=== PATIENT | female | born 1960 | race Caucasian/White ===

== ENCOUNTER → 2019-12-21 08:43 | Outpatient (CLI) | payer BC, SELFPAY ==
--- NOTE | ~2019-12-21 | XR_ITS ---
XR thoracic spine 2V 12/21/2019 10:31 Indication: 3 views thoracic spine Procedure: 3 views thoracic spine Comparison: No prior studies for comparison. Findings: There is mild curvature of the thoracic spine. Vertebral body heights are maintained. No fr acture or traumatic malalignment. There is mild thoracic spondylosis primarily of the upper thoracic spine. No acute fracture or traumatic malalignment. Impression: 1: Mild thoracic spondylosis. Reviewed, dictated and finalized at location A. STANT SHIFT SUPERVISOR Impression: 1: Mild thoracic spondylosis.
--- NOTE | ~2019-12-21 | XR_ITS ---
XR lumbar spine 6V w bending 12/21/2019 10:32 Indication: Radiculopathy. Procedure: 7 views lumbar spine Comparison: No prior studies for comparison. Findings: There is advanced multilevel facet hypertrophy at L3-4, L4-5 and L5-S1. There is a chronic fracture deformity of L2 with associated vertebroplasty changes. There is mild disc narrowing at L3-4 , L4-5 and L5-S1. There is degenerative grade 1 spondylolisthesis at L4-5. Impression: 1: Chronic mild superior endplate compression fracture of L2 with associated vertebroplasty changes. 2: Moderate lumbar spondylosis primarily involving the facet joints. Reviewed, dictated and finalized at location A. SOFTWARE DEVELOPMENT ENGINEER Impression: 1: Chronic mild superior endplate compression fracture of L2 with associated ve rtebroplasty changes. 2: Moderate lumbar spondylosis primarily involving the facet joints.
--- NOTE | ~2019-12-21 | MR_ITS ---
EXAMINATION: MR lumbar spine wo con EXAM DATE: 12/21/2019 09:34 INDICATION: Low back pain, left leg pain, lumbar radiculopathy. TECHNIQUE: Multi-sequential, multiplanar MR images of the lumbar spine were obtained without contrast . Sagittal T1, T2, T2 fat saturation images. Axial T2 weighted images. Comparison is made to prior examination from 12/19/2016. FINDINGS: There is mild chronic compression fracture of L2, with development of low signal intensity in side from methylmethacrylate injection. Height is stable compared to prior study. There is rudimen tary L5-S1 disc with some additional loss of height. There is 2-3 mm anterolisthesis L4 on L5. The ve rtebral bodies are otherwise aligned. The vertebral body and disc heights are otherwise well maintain ed. The conus medullaris terminates at the L1 level and has normal signal intensity and morphology. Paraspinal soft tissue is unremarkable. Level by level evaluation: T11-12: There is a minimal diffuse disc bulge. Facet arthropathy: Mild to moderate right, mild left. Neural foraminal stenosis: No stenosis. Central canal stenosis: No stenosis. T12-L1: Disc does not extend beyond the endplate margin. Facet arthropathy: Mild to moderate. Neural foraminal stenosis: No stenosis. Central canal stenosis: No stenosis. L1-L2: There is a minimal diffuse disc bulge. Facet arthropathy: Mild. Neural foraminal stenosis: No stenosis. Central canal stenosis: No stenosis. L2-L3: Disc does not extend beyond the endplate margin. Facet arthropathy: Mild. Neural foraminal stenosis: No stenosis. Central canal stenosis: No stenosis. L3-L4: There is a mild diffuse disc bulge. Facet arthropathy: Moderate. Neural foraminal stenosis: Mild to moderate bilateral. Central canal stenosis: Mild. L4-L5: There is a mild to moderate diffuse disc bulge. Facet arthropathy: Moderate to severe. . Ligamentum flavum enlargement. Neural foraminal stenosis: Moderate left, mild right. Central canal stenosis: Mild to moderate. L5-S1: There is a mild to moderate diffuse disc bulge. Facet arthropathy: Mild to moderate. Neural foraminal stenosis: Moderate left, mild to moderate right. Central canal stenosis: Mild. IMPRESSION: 1. Mild to moderate lumbar spondylosis as detailed above. Reviewed, dictated and finalized at location A. AND COST ANALYST
== END ==
PROVIDERS: PCP Family Medicine Adolescent Medicine; Visit Provider Physician Assistant Medical
DX: M47.24 Other spondylosis with radiculopathy, thoracic region (principal); M47.26 Other spondylosis with radiculopathy, lumbar region; M48.56XS Collapsed vertebra, not elsewhere classified, lumbar region, sequela of fracture
CPT/HCPCS: 72070; 72114; 72148

== ENCOUNTER 2020-07-23 15:38 | Outpatient (CLI) | payer BC, SELFPAY ==
[2020-07-23 16:46] LABS: CRP 1.1 mg/dL (<1.0)
[2020-07-23 16:59] LABS: Erythrocyte Sedimentation Rate 25 mm/hr (0-20)
== END 2020-07-23 15:39 | disposition home or self-care (01) ==
LOC: ANHLAB 15:39
PROVIDERS: PCP Family Medicine Adolescent Medicine; Visit Provider Orthopaedic Surgery
DX: G89.29 Other chronic pain (principal); M25.552 Pain in left hip
CPT/HCPCS: 36415; 85652; 86140

== ENCOUNTER → 2020-07-31 07:51 | Outpatient (CLI) | payer BC, SELFPAY ==
--- NOTE | ~2020-07-31 | MR_ITS ---
EXAMINATION: MR hip LT wo con DATE: 07/31/2020 09:17 INDICATION: Left hip pain post prior arthroplasty. TECHNIQUE: Magnetic resonance imaging (MRI) of the left hip was performed without intravenous contra st. Sequences included full-field axial fluid sensitive FSE STIR, coronal of the pelvis with T1-weigh rob FSE and T2-weighted FSE, small field of view of the left hip with axial, sagittal and coronal T1 -weighted FSE and T2-weighted FSE. COMPARISON: Left hip radiographs dated 07/23/2020 FINDINGS: Bones: Metallic magnetic field artifact associated with a left total hip arthroplasty. Alignment is normal. No fracture, reactive marrow edema, avascular necrosis or pathologic marrow replacing process. Mode rate lumbar spondylosis. Right hip joint space appears relatively preserved on the larger field of vi ew images. Fluid: Physiologic amount of fluid at the right hip joint. No left hip joint effusion with small amount of i ncreased signal along the margins of the arthroplasty which could represent minimal fluid or artifact . Mild increased fluid signal about the right greater trochanter consistent with mild trochanteric bu rsitis. No other abnormal fluid collections. Soft tissues: Normal and symmetric muscle bulk and signal in the pelvis and visualized proximal thighs. The iliopso as and proximal hamstring tendons are normal. There is mild thickening of the posterior left gluteus medius tendon with mild asymmetric proximal retraction of the the posterior myotendinous junction con sistent with tendinopathy with likely mild partial tear. Mild tendinopathy without discrete tear at t he left gluteus minimus tendon and suggestion of similar tendinopathy on the right but not diagnostic ally evaluated on the larger field of view images. Diverticulosis along the descending and sigmoid co marquise without adjacent inflammatory stranding to suggest diverticulitis. Normal appendix. Limited evalu ation of visceral organs of the pelvis is otherwise unremarkable. No pathologically enlarged pelvic/ inguinal lymphadenopathy. IMPRESSION: 1. Left total hip arthroplasty in near-anatomic alignment with no acute osseous abnormality. 2. Mild left gluteus ramus and medius tendinopathy with likely mild partial tear of the left gluteus medius tendon. 3. Mild right trochanteric bursitis centered about the right gluteus minimus tendon also suggests ten dinopathy although is not diagnostically evaluated on the larger field of view images. 4. Moderate lumbar spondylosis. 5. Diverticulosis. Reviewed, dictated and finalized at location B. IMPRESSION: 1. Left total hip arthroplasty in near-anatomic alignment with no acute osseous abnormality. 2. Mild left gluteus ramus and medius tendinopathy with likely mild partial tea r of the left gluteus medius tendon. 3. Mild right trochanteric bursitis centered about the right gluteus minimus te ndon also suggests tendinopathy although is not diagnostically evaluated on the larger field of view images. 4. Moderate lumbar spondylosis. 5. Diverticulosis.
== END ==
PROVIDERS: PCP Family Medicine Adolescent Medicine; Visit Provider Orthopaedic Surgery
DX: M47.896 Other spondylosis, lumbar region (principal); K57.30 Diverticulosis of large intestine without perforation or abscess without bleeding; Z96.642 Presence of left artificial hip joint
CPT/HCPCS: 73721

== ENCOUNTER 2020-08-25 07:56 | Outpatient (CLI) | payer BC, SELFPAY ==
--- NOTE | ~2020-08-25 | MM_ITS ---
EXAMINATION: MM screening [facility] BI w pavel HISTORY: Screening mammogram TECHNIQUE: Craniocaudal and mediolateral oblique 3-D tomosynthesis images were obtained and synthetic 2-D images were generated. CAD analysis was submitted and interpreted. COMPARISON: 07/15/2019, 06/05/2018, 05/31/2017 BREAST PARENCHYMAL COMPOSITION: There are scattered areas of fibroglandular density. FINDINGS: RIGHT BREAST: There is no evidence of suspicious mass, calcification, or architectural distortion to suggest malignancy. There has been no significant interval change. LEFT BREAST: There are grouped indeterminate calcifications in the anterior third of the outer breast . IMPRESSION: 1. Indeterminate left breast calcifications 2. Magnification views are recommended. BI-RADS Category 0: Incomplete: Needs additional imaging evaluation. Reviewed, dictated and finalized at location A. M FITTER SUPERVISOR
== END 2020-08-25 07:57 | disposition home or self-care (01) ==
LOC: ANHIMG 07:57
PROVIDERS: PCP Family Medicine Adolescent Medicine; Visit Provider Obstetrics & Gynecology
DX: Z12.31 Encounter for screening mammogram for malignant neoplasm of breast (principal); R91.8 Other nonspecific abnormal finding of lung field
CPT/HCPCS: 77063; 77067

== ENCOUNTER 2020-09-17 13:02 | Outpatient (CLI) | payer BC, SELFPAY ==
--- NOTE | ~2020-09-17 | MM_ITS ---
EXAMINATION: MM diagnostic mammo unilat LT HISTORY: Indeterminate microcalcifications reported on 08/25/2020 screening mammogram examinations TECHNIQUE: Additional 3-D ML tomosynthesis images of the left breast were performed and synthetic 2-D images were generated. Magnification ML and craniocaudal views. CAD analysis was submitted and inter preted. COMPARISON: 08/25/2020, 07/15/2019, 06/05/2018 digital mammogram examinations FINDINGS: Occasional benign microcalcifications are noted. No malignant features are identified. IMPRESSION: 1. No mammographic evidence of malignancy 2. Routine annual mammographic screening is recommended. BI-RADS Category 2: Benign finding(s). Reviewed, dictated and finalized at location A. OTION PRODUCER
== END 2020-09-17 13:03 | disposition home or self-care (01) ==
LOC: ANHIMG 13:03
PROVIDERS: PCP Family Medicine Adolescent Medicine; Visit Provider Obstetrics & Gynecology
DX: R92.1 Mammographic calcification found on diagnostic imaging of breast (principal)
CPT/HCPCS: 77065

== ENCOUNTER 2020-09-18 02:13 | Outpatient (CLI) | payer BC, SELFPAY ==
[2020-09-18 19:10] LABS: SARS-CoV-2 RNA PCR Negative
== END 2020-09-18 02:14 | disposition home or self-care (01) ==
LOC: ANHCOVIDDT 02:13
PROVIDERS: PCP Family Medicine Adolescent Medicine; Visit Provider Internal Medicine Gastroenterology
DX: Z01.812 Encounter for preprocedural laboratory examination (principal); Z20.828 Contact with and (suspected) exposure to other viral communicable diseases
CPT/HCPCS: 87635; C9803; U0003

== ENCOUNTER 2020-09-21 01:04 | Day surgery (SDC) | payer BC, SELFPAY ==
[2020-09-15 14:39] VITALS: BMI 30.2
[2020-09-21 07:17] VITALS: BP 123/61; PULSE 61; RESP 16; TEMP 36.1; O2SAT 100
--- NOTE | 2020-09-21 07:21 | WPDANESEPPF ---
Anes - Initial Pre Proc Eval Procedure: Operation Date: 09/21/20 08:30 Proposed Procedures p Esophagogastroduodenoscopy & Screening Colonoscopy - Donn Santiago MD Date/Time: 09/21/20 07:21 Surgeon: Donn Santiago MD Pre Op Diagnosis: Neoplasm Screening, GERD Patient Data Age: 59 Gender: F Height: 1.55 m Weight: 72.8 kg Last Vital Signs Temp 36.1 C L 09/21/20 07:17 Pulse 61 09/21/20 07:17 Resp 16 09/21/20 07:17 BP 123/61 09/21/20 07:17 Pulse Ox 100 09/21/20 07:17 Allergies Allergy/AdvReac Type Severity Reaction Status Date / Time Penicillins Allergy Unknown Unknown Verified 09/21/20 07:15 Home Medications Medication Instructions Recorded Confirmed Type doxycycline monohydrate 100 mg 100 mg PO DAILY 07/23/20 09/21/20 History capsule lamotrigine 200 mg tablet 200 mg PO DAILY 07/23/20 09/21/20 History lorazepam 0.5 mg tablet 0.5 mg PO DAILY PRN 07/23/20 09/21/20 History sertraline 100 mg tablet 100 mg PO DAILY 07/23/20 09/21/20 History spironolactone 100 mg tablet 100 mg PO DAILY 07/23/20 09/21/20 History calcium carbonate-vitamin D2 2 tablet PO DAILY 09/15/20 09/21/20 History [Calcium + Vitamin D] pantoprazole 40 mg PO DAILY 09/15/20 09/21/20 History Patient hx anesthesia problems: none Family hx anesthesia problems: none PMFSH Past Medical History Medical History (Updated 09/21/20 @ 07:23 by Eze Mcdaniels MD) Anxiety Back pain Chronic GERD Depression Diabetes Hip pain, chronic Obesity Osteoarthritis Surgical History Surgical History (Updated 07/27/20 @ 12:26 by Jay Conway MD) History of bunionectomy x2 History of section (~1988) History of oophorectomy (~2008) History of total left hip arthroplasty (~12/08/15) History of tubal ligation (~1997) Family History Family History (Updated 08/17/15 @ 13:52 by DOCTOR UNKNOWN) Other Family history of arthritis Family history of chronic obstructive pulmonary disease Social History Social History Smoking packs per day: 1 Smoking cigarettes per day: 20.0 Years smoked: 20 Smoking pack-years: 20.00 Smoking status: Former smoker Tobacco type: cigarettes Second hand tobacco smoke exposure: No Smoking end date: 10/16/01 Alcohol intake: current Drinks per week: 0 Alcohol use details: MAY HAVE A COUPLE DRINKS PER MONTH Substance use: never Substance use type: does not use Living arrangements: with family Spiritual care concerns: No Anes - Eval Final PreProcedure Day of Procedure 09/21/20 07:21 Patient weight: obese Heart: regular rate and rhythm Lungs: clear to auscultation and normal air movement Airway: Mallampati scale class II Neurological: alert and oriented Last oral intake: >/= 8 hours ASA classification: III Emergent: no Anesthetic plan: proceed Anesthesia type and monitoring: general GIVS Informed Consent: The patient's anesthetic plan and its attendant risks and benefits were discussed with the patient/family/POA. Questions were solicited and answers provided to the satisfaction of the patient/family/POA.
[2020-09-21] MEDS: LACTATED RINGERS 1,000 ML 150 ML IV CONT (07:33)
--- NOTE | 2020-09-21 08:22 | WPDGICN ---
Assessment and Plan Assessment and plan (1) Encounter for screening colonoscopy: Code(s): Z12.11 - Encounter for screening for malignant neoplasm of colon Status: Acute Assessment and Plan: Screening colonoscopy will be performed period is been 10 years since last exam. Further recommendations may be given after endoscopy. (2) Chronic GERD: Code(s): K21.9 - Gastro-esophageal reflux disease without esophagitis Status: Acute Assessment and Plan: Patient continues to have epigastric pain despite taking pantoprazole 40 mg p.o. B.i.d.. Plan is for 5 surveillance follow-up EGD at this time to assess poor response to therapy. Continued anti-reflux measures, bland diet. Elevating head of bed at night or encourage. GI Consult Note Consult date/time: 09/21/20 08:22 HPI: Katrina Kitchen is a 59 year old female Presents for evaluation of screening colonoscopy as well as GE reflux disease. Patient has ongoing epigastric pain. Intermittent dysphagia. Food will catch in the mid substernal portion of the chest. Patient has taken pantoprazole daily as was supplemented with antacids. Continues to have modest discomfort in the epigastric area. She denies any weight loss or bleeding. Patient also presents for screening colonoscopy. Last exam was more than 10 years prior to this. Her current weight appetite bowel movements are normal. She denies abdominal pain. She has had no bleeding. Family history is noncontributory. Review of Systems Review of Systems: All systems reviewed & are unremarkable except as noted in HPI and below PMFSH Past Medical History Medical History (Updated 09/21/20 @ 08:24 by Donn Santiago MD) Anxiety Back pain Chronic GERD Depression Diabetes Hip pain, chronic Obesity Osteoarthritis Surgical History Surgical History (Updated 07/27/20 @ 12:26 by Jay Conway MD) History of bunionectomy x2 History of section (~1988) History of oophorectomy (~2008) History of total left hip arthroplasty (~12/08/15) History of tubal ligation (~1997) Family History Family History (Updated 08/17/15 @ 13:52 by DOCTOR UNKNOWN) Other Family history of arthritis Family history of chronic obstructive pulmonary disease Social History Social History Smoking packs per day: 1 Smoking cigarettes per day: 20.0 Years smoked: 20 Smoking pack-years: 20.00 Smoking status: Former smoker Tobacco type: cigarettes Second hand tobacco smoke exposure: No Smoking end date: 10/16/01 Alcohol intake: current Drinks per week: 0 Alcohol use details: MAY HAVE A COUPLE DRINKS PER MONTH Substance use: never Substance use type: does not use Living arrangements: with family Spiritual care concerns: No Meds Home Medications and Allergies Home Medications Medication Instructions Recorded Confirmed Type doxycycline monohydrate 100 mg 100 mg PO DAILY 07/23/20 09/21/20 History capsule lamotrigine 200 mg tablet 200 mg PO DAILY 07/23/20 09/21/20 History lorazepam 0.5 mg tablet 0.5 mg PO DAILY PRN 07/23/20 09/21/20 History sertraline 100 mg tablet 100 mg PO DAILY 07/23/20 09/21/20 History spironolactone 100 mg tablet 100 mg PO DAILY 07/23/20 09/21/20 History calcium carbonate-vitamin D2 2 tablet PO DAILY 09/15/20 09/21/20 History [Calcium + Vitamin D] pantoprazole 40 mg PO DAILY 09/15/20 09/21/20 History Allergies Allergy/AdvReac Type Severity Reaction Status Date / Time Penicillins Allergy Unknown Unknown Verified 09/21/20 07:15 Vital Signs Vital Signs - 24 hr 09/21/20 07:17 Temperature 97.0 F L Pulse Rate 61 Respiratory Rate 16 Blood Pressure 123/61 Pulse Oximetry 100 Exam Narrative: Exam Narrative: Physical exam reveals patient be alert. Vital signs stable. HEENT exam is unremarkable. Patient is anicteric. Lungs are clear to auscultation and percussion. Heart is without murmur or extra sounds.
[2020-09-21 09:12] VITALS: BP 102/54; PULSE 58; RESP 20; O2SAT 99
[2020-09-21 09:22] VITALS: BP 101/55; PULSE 60; RESP 22; O2SAT 99
[2020-09-21 09:32] VITALS: BP 113/69; PULSE 58; RESP 20; O2SAT 100
== END 2020-09-21 10:05 | disposition home or self-care (01) ==
PROVIDERS: PCP Family Medicine Adolescent Medicine; Visit Provider Internal Medicine Gastroenterology
PROC: 0DJ08ZZ Inspection of Upper Intestinal Tract, Via Natural or Artificial Opening Endoscopic (ICD-10-PCS; CPT 43235; principal; 2020-09-21 08:30)
DX: K21.9 Gastro-esophageal reflux disease without esophagitis (principal); R10.13 Epigastric pain; E11.9 Type 2 diabetes mellitus without complications; F41.8 Other specified anxiety disorders; Z87.891 Personal history of nicotine dependence; E66.9 Obesity, unspecified; Z68.30 Body mass index [BMI] 30.0-30.9, adult
CPT/HCPCS: 43239; 87081; J2704; J7120

== ENCOUNTER 2021-12-30 13:08 | Outpatient (CLI) | payer BC, SELFPAY ==
--- NOTE | ~2021-12-30 | MM_ITS ---
EXAMINATION: MM screening [facility] BI w pavel HISTORY: Screening mammogram TECHNIQUE: Craniocaudal and mediolateral oblique 3-D tomosynthesis images were obtained and synthetic 2-D images were generated. CAD analysis was submitted and interpreted. COMPARISON: 09/17/2020, 08/25/2020, 07/15/2019, 06/05/2018 BREAST PARENCHYMAL COMPOSITION: There are scattered areas of fibroglandular density. FINDINGS: RIGHT BREAST: There is no suspicious mass, calcification, or architectural distortion to suggest rudolph gnancy. There has been no significant interval change. LEFT BREAST: There is a possible mass in the anterior third of the upper-outer quadrant breast best a ppreciated 3.5 cm from the nipple on mediolateral oblique tomosynthesis image . IMPRESSION: 1. Possible left breast mass. 2. Additional mammographic views and possible breast ultrasound are recommended. BI-RADS Category 0: Incomplete: Needs additional imaging evaluation. Reviewed, dictated and finalized at location A. IMPRESSION: 1. Possible left breast mass. 2. Additional mammographic views and possible breast ultrasound are recommended . BI-RADS Category 0: Incomplete: Needs additional imaging evaluation.
== END 2021-12-30 13:09 | disposition home or self-care (01) ==
PROVIDERS: PCP Family Medicine Adolescent Medicine; Visit Provider Family Medicine Adolescent Medicine
DX: Z12.31 Encounter for screening mammogram for malignant neoplasm of breast (principal); R92.8 Other abnormal and inconclusive findings on diagnostic imaging of breast
CPT/HCPCS: 77063; 77067

== ENCOUNTER 2022-01-12 11:20 | Outpatient (CLI) | payer BC, SELFPAY ==
--- NOTE | ~2022-01-12 | MMUS_ITS ---
EXAMINATION: MM diagnostic [facility] LT w pavel, US breast LT limited HISTORY: Possible left breast mass on screening mammogram TECHNIQUE: Craniocaudal, mediolateral, and mediolateral oblique 3-D tomosynthesis images of the left breast were performed and synthetic 2-D images were generated. CAD analysis was submitted and interpr eted. High resolution limited left breast ultrasound was performed. COMPARISON: 12/30/2021, 09/17/2020, 08/25/2020, 07/15/2019 FINDINGS: MAMMOGRAPHIC FINDINGS: There is an 11 mm x 6 mm oval, obscured, equal density mass in the anterior third of the outer breast at the 3:00 location 4 cm from the nipple. There are punctate internal calcifications. No architectu ral distortion is identified. ULTRASOUND: There is a 1.2 x 0.6 cm oval, circumscribed, complex cystic and solid mass with no posterior features or internal vascularity at the 2:00 location 1 cm from the nipple. IMPRESSION: 1. Indeterminate left breast mass. 2. Ultrasound-guided biopsy is recommended. BI-RADS category 4, suspicious findings. Reviewed, dictated and finalized at location A. IMPRESSION: 1. Indeterminate left breast mass. 2. Ultrasound-guided biopsy is recommended. BI-RADS category 4, suspicious findings.
== END 2022-01-12 11:21 | disposition home or self-care (01) ==
PROVIDERS: PCP Family Medicine Adolescent Medicine; Visit Provider Family Medicine Adolescent Medicine
DX: R92.8 Other abnormal and inconclusive findings on diagnostic imaging of breast (principal)
CPT/HCPCS: 76642; 77061; 77065; G0279

== ENCOUNTER 2022-01-21 12:50 | Outpatient (CLI) | payer BC, SELFPAY ==
--- NOTE | ~2022-01-21 | MMUS_ITS ---
US breast biopsy LT w image, MM post biopsy invasive LT EXAMINATION: US GUIDED NEEDLE BIOPSY WITH VAC UUM ASSISTANCE DATE: 01/21/2022 15:33 CDT INDICATION: Complex mass seen on recent examination. Ultrasound-guided core biopsy is requested to e valuate for malignancy. TECHNIQUE AND FINDINGS: The risks and potential benefits of the procedure were discussed with the patient, and written inform ed consent was obtained. After sterile preparation of the left breast, 1% lidocaine was utilized for local anesthesia. 1% lidocaine with epinephrine was used for deep anesthesia. A 10G vacuum-assisted biopsy gun needle was advanced through to the outer edge of the region of inter est from a superior approach utilizing sonographic guidance. A total of 4 tissue core samples were o btained through the lesion. An Inrad tissue marker clip was then placed at the biopsy site. Hemostas is was achieved. The patient tolerated procedure well and there was no evidence of immediate complication. The patien t was given verbal instructions partly is from the department. Left breast mammograms to document ti ssue marker clip placement. The tissue samples were submitted to surgical pathology for histologic an alysis. IMPRESSION: 1. Successful ultrasound-guided vacuum-assisted biopsy of left breast mass with tissue marker placem ent. Please refer to pathology report for histologic analysis. Reviewed, dictated and finalized at location A. IMPRESSION: 1. Successful ultrasound-guided vacuum-assisted biopsy of left breast mass wit h tissue marker placement. Please refer to pathology report for histologic anal ysis.
== END 2022-01-21 12:51 | disposition home or self-care (01) ==
PROVIDERS: PCP Family Medicine Adolescent Medicine; Visit Provider Family Medicine Adolescent Medicine
DX: N60.32 Fibrosclerosis of left breast (principal); N60.42 Mammary duct ectasia of left breast; N60.82 Other benign mammary dysplasias of left breast; N60.02 Solitary cyst of left breast; R92.0 Mammographic microcalcification found on diagnostic imaging of breast
CPT/HCPCS: 19083; 88305; A4648

== ENCOUNTER 2022-08-17 12:49 | Outpatient (CLI) | payer BC, SELFPAY ==
--- NOTE | ~2022-08-17 | DEXA_ITS ---
Bone Density Report Name: ALDO JUÁREZ Age: 61 Sex: Female Ethnicity: White Date of : 1960 Indication: osteopenia; monitoring treatment; height loss; prior fracture; postmenopausal Referring Provider: ALIRIO ROSS Study: Bone densitometry was performed. Exam Date: August 17, 2022 Accession number: [id number] Bone Density: Region BMD T-score Z-score Classification AP Spine(L1, L3, L4) 1.066 0.1 1.8 Normal Femoral Neck (Right) 0.628 -2.0 -0.5 Osteopenia Total Hip (Right) 0.792 -1.2 -0.1 Osteopenia World Health Organization criteria for BMD impression classify patients as: Normal (T-score at or above -1.0), Osteopenia (T-score between -1.0 and -2.5), or Osteoporosis (T-score at or below -2.5). 10-year Fracture Risk: FRAX not reported because: Prior hip or vertebral fracture Treated for osteoporosis Previous Exams: Region Exam Age BMD T-score BMD Change BMD Change Date g/cm2 vs Baseline vs Previous AP Spine (L1,L3-L4) 08/17/2022 61 1.066 0.1 0.151 (16.5%)* 0.151 (16.5%)* 05/25/2016 55 0.915 -1.3 Total Hip(Right) 08/17/2022 61 0.792 -1.2 -0.028 (-3.5%) -0.034 (-4.1%) 11/28/2018 58 0.826 -0.9 0.005 (0.6%) 0.005 (0.6%) 05/25/2016 55 0.821 -1.0 *Denotes significance at 95% confidence level, LSC for AP Spine = 0.022 g/cm2, LSC for Total Hip = 0.027 g/cm2 Clinical Information Provided by Patient: Have had a previous hip or vertebral fracture Has had a low trauma fracture Is being treated for osteoporosis Has used the following medications: Boniva (i.e. ibandronate) Patient maximum height was 61.5 No regular weight bearing exercise Drinks caffeinated beverages Onset of menses at age 13 Number of children 2 Impression: The patient has low bone mass, based on the Right Femoral Neck T-score. The patient has risk factors, including: previous fracture. The BMD for the Total Hip(Right) decreased, changing by -4.1% since the last DXA exam. Discussion: SIGNIFICANT BONE LOSS OBSERVED. Adherence to therapy (including calcium and vitamin D intake) should be assessed. If compliance is not a factor, review management and exclusion of secondary causes of bone loss. It is important to ask patients whether they are taking their medications and to encourage continued and appropriate compliance with their osteoporosis therapies to reduce fracture risk. It is also important to review their risk factors and encourage appropriate calcium and vitamin D intakes, exercise, fall prevention and other lifestyle measures. F
== END 2022-08-17 12:50 | disposition home or self-care (01) ==
PROVIDERS: PCP Family Medicine Adolescent Medicine; Visit Provider Family Medicine Adolescent Medicine
DX: Z78.0 Asymptomatic menopausal state (principal); M85.851 Other specified disorders of bone density and structure, right thigh
CPT/HCPCS: 77080

== ENCOUNTER 2023-01-23 08:21 | Outpatient (CLI) | payer BC, SELFPAY ==
--- NOTE | ~2023-01-23 | MM_ITS ---
EXAMINATION: MM screening [facility] BI w pavel HISTORY: Screening mammogram TECHNIQUE: Craniocaudal and mediolateral oblique 3-D tomosynthesis images were obtained and synthetic 2-D images were generated. CAD analysis was submitted and interpreted. COMPARISON: January 21, 2022 left breast biopsy January 12, 2022 diagnostic left mammogram and limited left breast ultrasound December 30, 2021 bilateral screening mammogram September 17, 2020 diagnostic left mammogram 08/25/2020, July 15, 2019 bilateral screening mammogram examinations BREAST PARENCHYMAL COMPOSITION: There are scattered areas of fibroglandular density. FINDINGS: Biopsy marker on the left; history of prior benign left breast biopsy. There is no evidence of suspicious mass, calcification, or architectural distortion to suggest malignancy in either breas t. There has been no suspicious interval change. IMPRESSION: 1. No mammographic evidence of malignancy. 2. Recommend routine screening mammography in one year. BI-RADS Category 1: Negative Reviewed, dictated and finalized at location A.
== END 2023-01-23 08:22 | disposition home or self-care (01) ==
LOC: ANHIMG 08:23
PROVIDERS: PCP Family Medicine Adolescent Medicine; Visit Provider Family Medicine Adolescent Medicine
DX: Z12.31 Encounter for screening mammogram for malignant neoplasm of breast (principal)
CPT/HCPCS: 77063; 77067

== ENCOUNTER 2024-04-03 08:25 | Outpatient (CLI) | payer OTHER, SELFPAY ==
--- NOTE | ~2024-04-03 | MM_ITS ---
EXAMINATION: MM screening [facility] BI w pavel HISTORY: Screening TECHNIQUE: Craniocaudal and mediolateral oblique 3-D tomosynthesis images were obtained and synthetic 2-D images were generated. CAD analysis was submitted and interpreted. COMPARISON: Comparison to multiple prior studies sequentially, with oldest reviewed study dated 08/16. BREAST PARENCHYMAL COMPOSITION: Not dense: There are scattered areas of fibroglandular density. FINDINGS: There is no evidence of suspicious mass, calcification, or architectural distortion to sugg est malignancy in either breast. There has been no suspicious interval change. IMPRESSION: 1. No mammographic evidence of malignancy. 2. Recommend routine screening mammography in one year. BI-RADS Category 1: Negative Reviewed, dictated and finalized at location B.
== END 2024-04-03 08:26 | disposition home or self-care (01) ==
PROVIDERS: PCP Family Medicine Adolescent Medicine; Visit Provider Family Medicine Adolescent Medicine
DX: Z12.31 Encounter for screening mammogram for malignant neoplasm of breast (principal)
CPT/HCPCS: 77063; 77067

== ENCOUNTER 2024-04-04 11:06 | Emergency (ER) | payer OTHER, SELFPAY ==
--- NOTE | ~2024-04-04 | XR_ITS ---
XR abdomen/kub 1V 04/04/2024 12:40 Indication: Constipation Procedure: KUB Comparison: No prior studies for comparison. Findings: Bowel gas pattern nonobstructive. Moderate colonic fecal loading. There are vertebroplasty changes at L2. There is a left total hip arthroplasty. Impression: 1: Nonobstructive bowel gas pattern. Reviewed, dictated and finalized at location B. Impression: 1: Nonobstructive bowel gas pattern.
[2024-04-04 11:09] VITALS: BP 136/71; PULSE 92; RESP 15; TEMP 36.8; O2SAT 98
--- NOTE | 2024-04-04 13:24 | ED.ABDPAIN ---
HPI - Abdominal Pain General Chief Complaint: Abdominal Pain Stated Complaint: constipation Time Seen by Provider: 04/04/24 12:30 Source: patient Mode of arrival: ambulatory Limitations: no limitations History of Present Illness HPI narrative: This is a 63 year old female that presents to the ER for constipation. Reports she has been having trouble with this since being started on Semaglutide. Reports worsening over the last couple of days. She has been taking stool softener daily. Reports intermittently using laxatives without relief. Denies fever or vomiting. Related Data Home Medications Medication Instructions Recorded Confirmed finasteride 5 mg tablet 5 mg PO DAILY 11/02/22 01/17/24 Allergies Allergy/AdvReac Type Severity Reaction Status Date / Time Penicillins Allergy Unknown Unknown Verified 04/04/24 11:06 Review of Systems Review of Systems: CONSTITUTIONAL: Denies fever GASTROINTESTINAL: Denies abdominal pain, nausea, vomiting All systems reviewed & are unremarkable except as noted in HPI and below PMFSH Past Medical History Medical History Anxiety Chronic GERD Normal colonoscopy 10/04 Repeat 10/14 Surgical History Surgical History History of bunionectomy x2 History of section (~1988) History of oophorectomy (~2008) History of total left hip arthroplasty (~12/08/15) 2016 History of tubal ligation (~1997) Family History Family History Mother Bipolar 1 disorder Other Family history of arthritis Family history of chronic obstructive pulmonary disease Social History Social History Smoking packs per day: 1 Smoking cigarettes per day: 20.0 Years smoked: 20 Smoking pack-years: 20.00 Smoking status: Former smoker (Quit 20 years ago) Tobacco type: cigarettes Second hand tobacco smoke exposure: No Smoking end date: 10/16/01 Alcohol intake: current Drinks per week: 0 Alcohol use details: MAY HAVE A COUPLE DRINKS PER MONTH Substance use: never Substance use type: does not use Living arrangements: with family Occupation/Education: retired Gender identity (if verbalized by the patient): Female Sexual Orientation (if Verbalized by the Patient): Straight or Heterosexual Spiritual care concerns: No Agree to blood products: Yes Exam Narrative: GENERAL: Well-appearing, well-nourished, and in no acute distress. HEAD: Normocephalic, atraumatic. EYES: EOMI. CHEST: Clear to auscultation. No respiratory distress. No wheezes rales or rhonchi HEART: Regular rate and rhythm. No murmur heard. Normal peripheral pulses. ABDOMEN: Soft, nontender, nondistended, normal active bowel sounds. EXTREMITIES: Normal range of motion. No edema. SKIN: Warm, dry, no rash. NEURO: No focal deficits. Alert and oriented x3. PSYCH: Normal mood and affect Procedures Rectal Disimpaction Rectal Disimpaction #1: Rectal Disimpaction Date: 04/04/24 Rectal Disimpaction Time: 16:00 Indication: fecal impaction Procedural Sedation: No Sedation/Analgesia: none Technique: manual disimpaction with gloved finger Result: significant stool output Patient Tolerated Procedure: well and no complications Complications: none Course Course Emergency Course: patient able to have bowel movement. Reports feeling better and ready for discharge Vital Signs Vital signs: Vital Signs Temperature 98.2 F 04/04/24 11:09 Pulse Rate 92 04/04/24 11:09 Respiratory Rate 15 04/04/24 11:09 Blood Pressure 136/71 04/04/24 11:09 Pulse Oximetry 98 04/04/24 11:09 Oxygen Delivery Room Air 04/04/24 11:09 Temperature 98.2 F 04/04/24 11:09 Pulse Rate 92 04/04/24 11:09 Respiratory R
[2024-04-04 13:26] LABS: Basophils Absolute Auto 0.1 K/mm3 (0.0-0.1); Basophils Percent Auto 0.5 % (0.2-1.2); Eosinophils Absolute Auto 0.1 K/mm3 (0-0.3); Eosinophils Percent Auto 1.1 % (0-4.4); Hematocrit 39.9 % (37.0-47.0); Hemoglobin 13.5 g/dL (12.0-15.0); Immature Granulocyte Absolute 0.03 K/mm3 (0.00-0.031); Immature Granulocyte Percent A 0.3 % (0-0.5); Lymphocytes Absolute Auto 1.46 K/mm3 (0.9-3.2); Lymphocytes Percent Auto 14.2 % (18.3-44.2); Mean Corpuscular HGB Conc 33.8 g/dl (32-36); Mean Corpuscular Hemoglobin 30.4 pg (26-34); Mean Corpuscular Volume 89.9 fl (80-100); Mean Platelet Volume 9.8 fl (7.4-10.4); Monocytes Absolute Auto 0.6 K/mm3 (0.1-0.6); Monocytes Percent Auto 5.4 % (2.6-8.5); Neutrophils Absolute Auto 8.1 K/mm3 (1.3-6.7); Neutrophils Percent Auto 78.5 % (45.5-73.1); Platelet Count Result 259 k/mm3 (150-375); Red Blood Count 4.44 M/mm3 (4.2-5.4); Red Cell Distribution Width 12.2 % (11.5-14.5); White Blood Count 10.3 K/mm3 (4.5-10.0)
[2024-04-04 13:37] LABS: Alanine Aminotransferase 33 U/L (6-35); Albumin Level 4.9 g/dL (3.5-5.1); Alkaline Phosphatase 76 U/L (38-126); Anion Gap 10 mmol/L (4-12); Aspartate Amino Transferase 29 U/L (14-36); Bilirubin,Total 0.5 mg/dL (0.2-1.3); Blood Urea Nitrogen 17 mg/dL (7-17); Calcium 9.4 mg/dL (8.4-10.2); Carbon Dioxide 25 mmol/L (22-30); Chloride 105 mmol/L (98-107); Estimated CRCL calculation 63 ml/min; Estimated Glomerular Filt Rate > 60; Glucose 102 mg/dL (65-110); Potassium 4.1 mmol/L (3.4-5.0); Sodium 140 mmol/L (137-145)
[2024-04-04 16:58] VITALS: BP 128/84; PULSE 84; RESP 16; O2SAT 100
== END 2024-04-04 16:59 | disposition home or self-care (01) ==
PROVIDERS: Emergency Provider Physician Assistant; PCP Family Medicine Adolescent Medicine
DX: K59.00 Constipation, unspecified (principal); Z87.891 Personal history of nicotine dependence
CPT/HCPCS: 36415; 74018; 80053; 85025; 99283

== ENCOUNTER 2025-04-07 11:07 | Outpatient (CLI) | payer MEDICARE, SELFPAY ==
--- NOTE | ~2025-04-07 | DEXA_ITS ---
Bone Density Report Name: ALDO JUÁREZ Age: 64 Sex: Female Ethnicity: White Date of : 1960 Indication: osteopenia; monitoring treatment; prior fracture; Referring Provider: ALIRIO ROSS Study: Bone densitometry was performed. Exam Date: April 07, 2025 Accession number: [id number] Bone Density: Region BMD T-score Z-score Classification AP Spine(L1, L3, L4) 1.073 0.2 2.1 Normal Femoral Neck (Right) 0.693 -1.4 0.2 Osteopenia Total Hip (Right) 0.885 -0.5 0.8 Normal World Health Organization criteria for BMD impression classify patients as: Normal (T-score at or above -1.0), Osteopenia (T-score between -1.0 and -2.5), or Osteoporosis (T-score at or below -2.5). 10-year Fracture Risk: FRAX not reported because: Prior hip or vertebral fracture Treated for osteoporosis Previous Exams: Region Exam Age BMD T-score BMD Change BMD Change Date g/cm2 vs Baseline vs Previous AP Spine (L1,L3-L4) 04/07/2025 64 1.073 0.2 0.157 (17.2%)* 0.007 (0.6%) 08/17/2022 61 1.066 0.1 0.151 (16.5%)* 0.151 (16.5%)* 05/25/2016 55 0.915 -1.3 Total Hip(Right) 04/07/2025 64 0.885 -0.5 0.064 (7.8%)* 0.092 (11.7%)* 08/17/2022 61 0.792 -1.2 -0.028 (-3.5%) -0.034 (-4.1%) 11/28/2018 58 0.826 -0.9 0.005 (0.6%) 0.005 (0.6%) 05/25/2016 55 0.821 -1.0 *Denotes significance at 95% confidence level, LSC for AP Spine = 0.022 g/cm2, LSC for Total Hip = 0.027 g/cm2 Clinical Information Provided by Patient: Have had a previous hip or vertebral fracture Has had a low trauma fracture Is being treated for osteoporosis Has used the following medications: Boniva (i.e. ibandronate) Patient maximum height was 61.5 No regular weight bearing exercise Drinks caffeinated beverages Onset of menses at age 13 Number of children 2 Impression: The patient has low bone mass, based on the Right Femoral Neck T-score. The patient has risk factors, including: previous fracture. No significant bone loss was observed. Discussion: PATIENT UNDER TREATMENT WITH NO SIGNIFICANT BMD LOSS SINCE LAST EXAM. In an untreated patient, BMD typically declines with age. A lack of decline or gain is usually a sign that treatment is efficacious and fracture risk is reduced. It is important to ask patients whether they are taking their medications and to encourage continued and appropriate compliance with their osteoporosis therapies to reduce fracture risk. It is also important to review their risk factors and encourage appropriate calcium and vitamin D intakes, exercise, fall prevention and other lifestyle measures. Follow-Up: Consider a repeat BMD and Vertebral Fracture Assessment (VFA) exam in 2 years or sooner if medically necessary, to reassess this patient's status. Reported by: CAMRYN on 04/07/2025 11:49:00 AM. Reviewed, dictated and finalized at location A.
== END 2025-04-07 11:08 | disposition home or self-care (01) ==
PROVIDERS: PCP Family Medicine; Visit Provider Family Medicine Adolescent Medicine
DX: M85.851 Other specified disorders of bone density and structure, right thigh (principal); Z78.0 Asymptomatic menopausal state
CPT/HCPCS: 77080

== ENCOUNTER 2025-04-09 08:25 | Outpatient (CLI) | payer MEDICARE, SELFPAY ==
--- NOTE | ~2025-04-09 | MM_ITS ---
EXAMINATION: MM screening [facility] BI w pavel HISTORY: Screening mammogram TECHNIQUE: Craniocaudal and mediolateral oblique 3-D tomosynthesis images were obtained and synthetic 2-D images were generated. CAD analysis was submitted and interpreted. COMPARISON: 04/03/2024, 01/23/2023, 12/30/2021 BREAST PARENCHYMAL COMPOSITION:Not Dense. There are scattered areas of fibroglandular density. FINDINGS: No suspicious mass, calcification, or architectural distortion are identified in either ayan ast to suggest malignancy. There has been no suspicious interval change. IMPRESSION: No mammographic evidence of malignancy. Recommend routine screening mammography in one year. BI-RADS Category 1: Negative Reviewed, dictated and finalized at location .
== END 2025-04-09 08:26 | disposition home or self-care (01) ==
LOC: ANHIMG 08:27
PROVIDERS: PCP Family Medicine; Visit Provider Family Medicine Adolescent Medicine
DX: Z12.31 Encounter for screening mammogram for malignant neoplasm of breast (principal)
CPT/HCPCS: 77063; 77067